=== PATIENT | male | born 1980 | race Caucasian/White ===

== ENCOUNTER 2021-02-03 20:27 | Emergency (ER) | payer BC ==
[2021-02-03] MEDS ORDERED: Fluorescein Opthalmic Strip ONE (21:04)
[2021-02-03] MEDS ORDERED: Tetracaine 0.5% PF 4 ML BOT ONE ×2 (21:04→21:11)
== END 2021-02-03 22:38 | disposition home or self-care (01) ==
LOC: CSHERS 20:27
DX: T15.02XA Foreign body in cornea, left eye, initial encounter (principal); F17.210 Nicotine dependence, cigarettes, uncomplicated
CPT/HCPCS: 99283